=== PATIENT | female | born 1955 | race Caucasian/White ===

== ENCOUNTER 2022-11-26 17:01 | Inpatient (IN) | payer OTHER ==
[~2022-11-26] VITALS: Ht 152.4 cm; Wt 140.0 kg
[2022-11-26 17:16] VITALS: BP 142/81
[2022-11-26] MEDS ORDERED: CYCLOBENZAPRINE10 M1 PO (17:24)
[2022-11-26 17:25] LABS: BASO # 0.06 K/mm3 (0.02-0.10); EOS # 0.31 K/mm3 (0.04-0.40); EOS % 3.1 % (1.0-5.0); HEMATOCRIT 30.3 % (37.0-47.0); HEMOGLOBIN 9.5 g/dL (12.5-16.0); LYMPH# 1.44 K/mm3 (1.50-4.00); MEAN CELL VOLUME 94 fl (78-100); MEAN CORPUSCULAR HEMOGLOBIN 29 pg (27-31); MEAN CORPUSCULAR HGB CONC 31 g/dL (33-37); MONO # 0.91 K/mm3 (0.20-0.80); NEU # 7.23 K/mm3 (1.40-6.50); PLATELET COUNT 357 K/mm3 (130-400); RED BLOOD COUNT 3.24 M/mm3 (4.10-5.30); RED CELL DISTRIBUTION WIDTH 15.3 % (11.5-14.5); WHITE BLOOD COUNT 10.1 K/mm3 (4.8-10.8)
[2022-11-26] MEDS ORDERED: INSULIN LI100 UNIT/1 SQ (17:25)
[2022-11-26] MEDS ORDERED: MIRALAX17 GM PO (17:26)
[2022-11-26] MEDS ORDERED: ROXICODONE 55 MG/TAB PO (17:26)
[2022-11-26] MEDS ORDERED: MEDI-FIRST ASP325 MG PO (17:27)
[2022-11-26] MEDS ORDERED: NATURAL IRON65 MG PO (17:28)
[2022-11-26] MEDS ORDERED: TYLENOL EXTRA500 M2 PO (17:28)
[2022-11-26] MEDS ORDERED: FARYDAK10 MG PO (17:28)
[2022-11-26] MEDS ORDERED: ATORVASTATIN CA40 MG PO (17:28)
[2022-11-26] MEDS ORDERED: ADVAIR DISKUS1 DS2 IH (17:29)
[2022-11-26] MEDS ORDERED: LEVO-T175 MCG PO (17:29)
[2022-11-26] MEDS ORDERED: PLAQUENIL200 MG PO (17:29)
[2022-11-26 17:36] LABS: ALBUMIN 3.2 g/dL (3.4-4.8); POTASSIUM 4.6 mmol/L (3.5-5.1)
[2022-11-26 17:37] LABS: CALCIUM 10.1 mg/dL (8.3-10.5)
[2022-11-26 17:38] LABS: TOTAL PROTEIN 6.5 g/dL (6.2-8.1)
[2022-11-26 17:40] LABS: TOTAL BILIRUBIN 0.6 mg/dL (0.2-1.2)
[2022-11-27 05:58] LABS: URINE APPEARANCE HAZY; URINE COLOR YELLOW
[2022-11-27 05:59] LABS: URINE BILIRUBIN NEGATIVE (NEGATIVE); URINE BLOOD 250 ery/uL (NEGATIVE); URINE GLUCOSE NEGATIVE (NEGATIVE); URINE KETONE NEGATIVE (NEGATIVE); URINE LEUKOCYTE ESTERASE 2+ (NEGATIVE); URINE MUCUS PRESENT (NOT PRESENT); URINE NITRATE NEGATIVE (NEGATIVE); URINE PROTEIN(semi-quant) TRACE (NEGATIVE); URINE UROBILINOGEN NORMAL (NORMAL)
[2022-11-27 06:03] VITALS: BP 137/73
[2022-11-27 17:30] VITALS: BP 141/77
[2022-11-28 05:49] VITALS: BP 158/67
[2022-11-28 07:57] LABS: BASO # 0.04 K/mm3 (0.02-0.10); EOS # 0.54 K/mm3 (0.04-0.40); EOS % 5.6 % (1.0-5.0); HEMOGLOBIN 9.7 g/dL (12.5-16.0); LYMPH# 1.53 K/mm3 (1.50-4.00); MEAN CELL VOLUME 95 fl (78-100); MEAN CORPUSCULAR HEMOGLOBIN 30 pg (27-31); MEAN CORPUSCULAR HGB CONC 31 g/dL (33-37); MEAN PLATELET VOLUME 9.9 fl (7.4-10.4); MONO # 0.84 K/mm3 (0.20-0.80); NEU # 6.63 K/mm3 (1.40-6.50); PLATELET COUNT 372 K/mm3 (130-400); RED BLOOD COUNT 3.26 M/mm3 (4.10-5.30); RED CELL DISTRIBUTION WIDTH 15.7 % (11.5-14.5); WHITE BLOOD COUNT 9.7 K/mm3 (4.8-10.8)
[2022-11-28 08:03] LABS: ALBUMIN 3.3 g/dL (3.4-4.8)
[2022-11-28 08:04] LABS: POTASSIUM 4.2 mmol/L (3.5-5.1)
[2022-11-28 08:05] LABS: CALCIUM 10.2 mg/dL (8.3-10.5)
[2022-11-28 08:06] LABS: TOTAL PROTEIN 6.6 g/dL (6.2-8.1)
[2022-11-28 08:08] LABS: TOTAL BILIRUBIN 0.6 mg/dL (0.2-1.2)
[2022-11-28 17:34] VITALS: BP 111/53
[2022-11-29 05:50] VITALS: BP 147/63
[2022-11-29 17:00] VITALS: BP 139/77
[2022-11-30 05:44] VITALS: BP 134/65
[2022-11-30 17:07] VITALS: BP 136/80
[2022-12-01 05:55] VITALS: BP 119/71
[2022-12-01 17:15] VITALS: BP 128/71
[2022-12-02 06:00] VITALS: BP 123/76
[2022-12-02 17:11] VITALS: BP 122/75
[2022-12-03 05:56] VITALS: BP 143/76
[2022-12-03 17:16] VITALS: BP 139/78
[2022-12-04 05:45] VITALS: BP 124/75
[2022-12-04 08:08] LABS: ALBUMIN 2.9 g/dL (3.4-4.8)
[2022-12-04 08:09] LABS: BASO # 0.04 K/mm3 (0.02-0.10); EOS % 7.3 % (1.0-5.0); HEMATOCRIT 25.5 % (37.0-47.0); LYMPH# 1.22 K/mm3 (1.50-4.00); MEAN CELL VOLUME 96 fl (78-100); MEAN CORPUSCULAR HEMOGLOBIN 30 pg (27-31); MEAN CORPUSCULAR HGB CONC 31 g/dL (33-37); MEAN PLATELET VOLUME 10.4 fl (7.4-10.4); MONO # 0.62 K/mm3 (0.20-0.80); NEU # 3.21 K/mm3 (1.40-6.50); PLATELET COUNT 233 K/mm3 (130-400); POTASSIUM 4.3 mmol/L (3.5-5.1); RED BLOOD COUNT 2.65 M/mm3 (4.10-5.30); RED CELL DISTRIBUTION WIDTH 16.6 % (11.5-14.5); WHITE BLOOD COUNT 5.5 K/mm3 (4.8-10.8)
[2022-12-04 08:10] LABS: CALCIUM 9.3 mg/dL (8.3-10.5)
[2022-12-04 08:11] LABS: TOTAL PROTEIN 5.8 g/dL (6.2-8.1)
[2022-12-04 08:13] LABS: TOTAL BILIRUBIN 0.4 mg/dL (0.2-1.2)
[2022-12-04 17:58] VITALS: BP 131/72
[2022-12-05 05:51] VITALS: BP 129/75
== END 2022-12-05 11:30 | disposition home health service (06) | DRG 560 ==
LOC: MED/SURG 17:01
PROVIDERS: Family Medicine; ADMIT Physician Assistant
DX: S72.92XD Unspecified fracture of left femur, subsequent encounter for closed fracture with routine healing (principal); Z68.44 Body mass index [BMI] 60.0-69.9, adult; N18.32 Chronic kidney disease, stage 3b; E11.22 Type 2 diabetes mellitus with diabetic chronic kidney disease; I12.9 Hypertensive chronic kidney disease with stage 1 through stage 4 chronic kidney disease, or unspecified chronic kidney disease; E03.9 Hypothyroidism, unspecified; E66.01 Morbid (severe) obesity due to excess calories; F41.9 Anxiety disorder, unspecified; R53.81 Other malaise; W19.XXXD Unspecified fall, subsequent encounter; Z96.652 Presence of left artificial knee joint; Z87.891 Personal history of nicotine dependence; Z88.1 Allergy status to other antibiotic agents